=== PATIENT | female | born 1995 | race Hispanic/Latino ===

== ENCOUNTER 2022-10-02 18:53 | Emergency (ER) | payer OTHER, SELFPAY ==
[2022-10-02] VITALS (10 sets, daily range): BP systolic 118–133; BP diastolic 71–79; PULSE 91–105; RESP 16–25; TEMP 37; O2SAT 97–100; BMI 23.8
--- NOTE | 2022-10-02 19:53 | ED_ITS ---
HPI - Arrhythmia/Palpitations General Chief Complaint: Arrhythmia/Palpitations Stated Complaint: SOB Time Seen by Provider: 10/02/22 19:10 Source: patient Mode of arrival: Family Vehicle History of Present Illness HPI narrative: 27-year-old female nonsmoker with no chronic medical problems presents with a chief complaint of elevated heart rate for the last week or so which is making her anxious and giving her difficulty sleeping, she does report some shortness of breath when lying flat on occasion. She is been to an outside facility 3 times and has had extensive lab workups and even CT scan per her report, we are still waiting on records. She denies recent travel, change in medications, she does not smoke and denies any history of blood clot. She denies any fever, chills, nausea or vomiting. Her last menstrual cycle was last month and was a bit atypical but she states that she is had multiple negative test. She denies any dysuria, frequency or urgency. She is had no dark and tarry stools. She denies any medication or dietary change. Related Data Allergies Allergy/AdvReac Type Severity Reaction Status Date / Time No Known Drug Allergies Allergy Verified 10/02/22 18:59 Review of Systems Review of Systems Narrative: GENERAL: Denies chills, fatigue, malaise, fever, sweats. HEENT: Denies sinus pain, ear pain, sore throat, difficulty swallowing, dizziness. RESPIRATORY: Denies dyspnea, cough, wheezing, hemoptysis, sputum. CARDIOVASCULAR: See HPI GASTROINTESTINAL: Denies nausea, vomiting, abdominal pain, diarrhea, constipation, melena. : Denies dysuria, frequency, incontinence, hematuria, urinary retention. MUSCULOSKELETAL: denies weakness, joint pain, or bony pain SKIN: Denies rash, skin lesions, or other NEUROLOGIC: Denies weakness, headache, numbness, change in speech, confusion, seizures, incoordination. PSYCHIATRIC: No concerning psychosocial issues. 12 point review of systems is negative except for those stated above Patient History Social History Smoking Status: Never smoker Smoking Status: Never smoker alcohol intake frequency: holidays/special occasions only Substance Use Type: does not use Exam Narrative Exam Narrative: GENERAL: [27] year old patient appears stated age. Well-developed patient, in mild distress. HEAD: Atraumatic. Normocephalic. EYES: Pupils equal round and reactive. Extraocular motions intact. No scleral icterus. No injection or drainage. ENT: Nose without bleeding, purulent drainage. Throat without erythema, tonsillar hypertrophy or exudate. Airway patent. NECK: Trachea midline. Non tender CARDIOVASCULAR: Regular rate and rhythm without murmurs, gallops, or rubs. RESPIRATORY: Clear to auscultation. Breath sounds equal bilaterally. No wheezes, rales, or rhonchi. GASTROINTESTINAL: Abdomen soft, non-tender, nondistended. EXTREMITIES: No edema or joint tenderness. BACK: Nontender without deformity or crepitance. No flank tenderness. NEURO: AOx3. SKIN: No rash or erythema of visible areas Initial Vital Signs Initial Vital Signs: Vital Signs Temperature 98.6 F 10/02/22 18:59 Pulse Rate 105 H 10/02/22 18:59 Respiratory Rate 22 10/02/22 18:59 Blood Pressure 123/79 10/02/22 18:59 Pulse Oximetry 97 10/02/22 18:59 Oxygen Delivery Method Room Air 10/02/22 18:59 Course Orders Ordered: ED Orders 10/02/22 20:00 Complete Blood Count AUTO DIFF Stat Comprehensive Metabolic Panel Stat D Dimer Stat Magnesium Stat TSH w/ Reflex to FT4 Stat Troponin & CK Cardiac Panel Stat Discontinued Medications Sodium Chloride (Normal Saline 0.9%) 1,000 mls @ 1,000 mls/hr IV BOLUS ONE Stop: 10/02/22 20:09 Last Infusion: 10/02/22 21:09 Dose: 0 mls/hr Documented By: Admin: 10/02/22 20:05 Dose: 1,000 mls/hr Documented By: SB Vital Signs Vital signs: Vital Signs - 8 hr 10/02/22 21:00 10/02/22 21:00 10/02/22 21:30 Pulse Rate 92 H Respiratory Rate 20 Blood Pressure 121/74 125/71 Pulse Oximetry 99 Oxygen Delivery Method Room Air 10/02/22 21:30 10/02/22 22:00 10/02/22 22:00 Pulse Rate 94 H 94 H Respiratory Rate 16 21 Blood Pressure 119/73 Pulse Oximetry 98 97 Oxygen Delivery Method 10/02/22 22:30 10/02/22 22:30 10/02/22 23:00 Pulse Rate 96 H Respiratory Rate 23 Blood Pressure 118/77 123/75 Pulse Oximetry 97 Oxygen Delivery Method 10/02/22 23:00 10/02/22 23:30 10/02/22 23:30 Pulse Rate 94 H 92 H Respiratory Rate 17 20 Blood Pressure 124/72 Pulse Oximetry 97 97 Oxygen Delivery Method MDM - Arrhythmia/Palpitations Lab Data 10/02/22 20:00 10/02/22 20:00 Labs: Lab Results 10/02/22 10/02/22 10/02/22 Range/Units 19:23 20:00 20:00 WBC 9.0 (4.5-11.0) X10^3/uL RBC 5.23 H (4.0-5.2) X10^6/uL Hgb 14.5 (12.0-16.0) g/dL Hct 42.5 (36-46) % MCV 81.2 (80-100) fL MCH 27.7 (26-34) PG MCHC 34.1 (30-36) % RDW 13.6 (11.6-14.8) % Plt Count 264 (150-400) X10^3/uL Neut % (Auto) 72.3 (50-75) % Lymph % (Auto) 20.1 L (25-40) % [place] % (Auto) 6.3 (3-14) % Eos % (Auto) 0.5 L (2-4) % Baso % (Auto) 0.8 (0-2) % Neut # (Auto) 6500 (4357-5361) /uL Lymph # (Auto) 1800 (3030-6931) /uL [place] # (Auto) 600 (0-900) /uL Eos # (Auto) 0 (0-450) /uL Baso # (Auto) 100 (0-100) /uL D-Dimer (<500) ng/ml Sodium (137-145) mmol/L Potassium (3.4-5.1) mmol/L Chloride (98-107) mmol/L Carbon Dioxide (22-32) mmol/L BUN (7-17) mg/dL Creatinine (0.52-1.04) mg/dL Estimated GFR (>60) mL/min BUN/Creatinine Ratio (6-22) Glucose (70-100) mg/dL Calcium (8.4-10.2) mg/dL Magnesium (1.6-2.3) mg/dL Total Bilirubin (0.2-1.3) mg/dL AST (14-36) IU/L ALT (<35) IU/L Alkaline Phosphatase (38-126) U/L Total Creatine Kinase (30-135) U/L CK-MB (CK-2) CK-MB (CK-2) Rel Index Troponin I (0.01-0.034) ng/mL Total Protein (6.3-8.2) g/dL Albumin (3.5-5.0) g/dL Globulin (1.7-4.1) g/dL Albumin/Globulin Ratio (1.0-2.8) TSH 1.57 (0.47-4.68) uIU/mL U Opiates 300ng/mL cut Negative (Negative) Ur Oxycodone Screen Negative (Negative) Urine Methadone Screen Negative (Negative) Ur Barbiturates Screen Negative (Negative) U Tricyclic Antidepress Negative (Negative) Ur Phencyclidine Scrn Negative (Negative) Ur Amphetamines Screen Negative (Negative) U Methamphetamines Scrn Negative (Negative) Ur MDMA Scrn (Ecstasy) Negative (Negative) U Benzodiazepines Scrn Positive H (Negative) Urine Cocaine Screen Negative (Negative) U Marijuana (THC) Screen Negative (Negative) 10/02/22 10/02/22 Range/Units 20:00 20:00 WBC (4.5-11.0) X10^3/uL RBC (4.0-5.2) X10^6/uL Hgb (12.0-16.0) g/dL Hct (36-46) % MCV (80-100) fL MCH (26-34) PG MCHC (30-36) % RDW (11.6-14.8) % Plt Count (150-400) X10^3/uL Neut % (Auto) (50-75) % Lymph % (Auto) (25-40) % [place] % (Auto) (3-14) % Eos % (Auto) (2-4) % Baso % (Auto) (0-2) % Neut # (Auto) (2324-5475) /uL Lymph # (Auto) (9617-7421) /uL [place] # (Auto) (0-900) /uL Eos # (Auto) (0-450) /uL Baso # (Auto) (0-100) /uL D-Dimer 816 H (<500) ng/ml Sodium 136 L (137-145) mmol/L Potassium 4.4 (3.4-5.1) mmol/L Chloride 101 (98-107) mmol/L Carbon Dioxide 25 (22-32) mmol/L BUN 12 (7-17) mg/dL Creatinine 0.67 (0.52-1.04) mg/dL Estimated GFR > 60 (>60) mL/min BUN/Creatinine Ratio 17.9 (6-22) Glucose 95 (70-100) mg/dL Calcium 9.6 (8.4-10.2) mg/dL Magnesium 2.0 (1.6-2.3) mg/dL Total Bilirubin 0.4 (0.2-1.3) mg/dL AST 27 (14-36) IU/L ALT 34 (<35) IU/L Alkaline Phosphatase 80 (38-126) U/L Total Creatine Kinase 73 (30-135) U/L CK-MB (CK-2) TNP CK-MB (CK-2) Rel Index TNP Troponin I < 0.012 (0.01-0.034) ng/mL Total Protein 8.8 H (6.3-8.2) g/dL Albumin 4.6 (3.5-5.0) g/dL Globulin 4.2 H (1.7-4.1) g/dL Albumin/Globulin Ratio 1.1 (1.0-2.8) TSH (0.47-4.68) uIU/mL U Opiates 300ng/mL cut (Negative) Ur Oxycodone Screen (Negative) Urine Methadone Screen (Negative) Ur Barbiturates Screen (Negative) U Tricyclic Antidepress (Negative) Ur Phencyclidine Scrn (Negative) Ur Amphetamines Screen (Negative) U Methamphetamines Scrn (Negative) Ur MDMA Scrn (Ecstasy) (Negative) U Benzodiazepines Scrn (Negative) Urine Cocaine Screen (Negative) U Marijuana (THC) Screen (Negative) Point of Care Testing Test Results Negative Urine Dip Bedside Urine Glucose Negative Bedside Urine Bilirubin - Negative Bedside Urine Ketone +++ 80 Urine Specific [place] 1.025 Bedside Urine Occult Blood - Negative Bedside Urine pH 5.5 Bedside Urine Protein - Negative Bedside Urine Urobilinogen - Negative Bedside Urine Nitrite - Negative Bedside Urine Leukocytes - Negative Esterase MDM Narrative Medical decision making narrative: CC: 27-year-old female with elevated heart rate Complicating co-morbidities: None known Data collected from: Patient Medical records reviewed: Prior notes reviewed in our EMR Differential considered, but not limited to: Pulmonary embolism, anemia, infectious process, electrolyte abnormality, thyroid abnormality versus other Exam documented above, pertinent findings include: Rate regular, lungs clear and nonlabored, abdomen soft and nontender Lab Test results independently reviewed as above. Pertinent findings: Independently reviewed EKG as above Imaging studies independently reviewed:2330 outside records finally came demonstrating CTA Chest for PE on 09/28 due to tachycardia and elevated Dimer without evidence of PE, will not repeat Scores Used: Wells, PERC Treatments: Fluids Re-evaluations: Patient largely asymptomatic over the duration of her visit with heart rate in the 80s and 90s. She denies any chest pain, feels well Discussion: Patient has been having episodes of low-grade tachycardia in the 90s and low 100s. She is had extensive workups with our department and [facility]. Labs have been unremarkable she had a CT angiogram performed a few days ago due to an elevated D-dimer. We decided it was unlikely to be benef icial to perform another CT angiogram today. There is no evidence of anemia, infection, electrolyte abnormality, TSH is normal. Patient is hemodynamically stable, blood pressure without abnormality, she is not hypoxemic. I encouraged her to pursue follow-up with Cardiology and gave contact information. Return precautions discussed and questions answered to her apparent satisfaction Disposition: see below, along with detailed discharge instructions that have been reviewed with patient as well as indications for ED re-evaluation and additional outpatient follow up Discharge Plan Departure Patient Disposition: Home Clinical Impression: Palpitations Instructions: DI for Palpitations Activity Restrictions/Additional Instructions: *You have been diagnosed with [occasional sinus tachycardia. As we discussed your history and physical exam are very reassuring, labs and EKG have no sign ificant findings. Your vital signs have been very stable and reassuring over the course of the visit. I was able to obtain records from your visits had [facility] which correlate with today's visit and at this time there is no obvious indication that further workup is needed in the emergency department.] *What to do: *Please continue to take your regular medications as directed. [ ] New medication prescriptions sent to your pharmacy: [ ] [ ] New medication written as a paper prescription [ x] No new medications given *Please follow up with your primary care provider in 2-3 days, call for an appointment. Let them know you were seen in the Emergency Department and that we ask that you be seen in follow up. We will electronically transmit a record of today's note if your PCP is in our system * as we discussed I have given you contact information for the local cardiology group. Please call their office on Monday, let them know that you were seen in the emergency department and we hope that they will see you in follow-up. *Please avoid caffeine, nicotine, alcohol and other stimulants which may making more likely to become tachycardic in the future. *If you do not have a primary care provider please contact the [facility] Resource line at [phone]. They will ask some questions about your medical history and help get you set up with a doctor in the community. *Return to Emergency Department if you should have any new, worsening or co ncerning symptoms, such as [fever greater than 101 F, shaking chills, worsening pain, persistent vomiting or other bothersome symptoms] Referrals: Donita Akins MD [Physician] - Stand Alone Forms: Patient Portal/API
[2022-10-02] MEDS: SODIUM CHLORIDE 0.9% 1,000 ML 1000 ML IV (20:05)
[2022-10-02 20:17] LABS: Add Manual Diff / Slide Review NO; Basophils Absolute Auto 100 /uL (0-100); Basophils Percent Auto 0.8 % (0-2); Eosinophils Absolute Auto 0 /uL (0-450); Eosinophils Percent Auto 0.5 % (2-4); Hematocrit 42.5 % (36-46); Hemoglobin 14.5 g/dL (12.0-16.0); Lymphocytes Absolute Auto 1800 /uL (1100-4500); Lymphocytes Percent Auto 20.1 % (25-40); Mean Corpuscular HGB Conc 34.1 % (30-36); Mean Corpuscular Hemoglobin 27.7 PG (26-34); Mean Corpuscular Volume 81.2 fL (80-100); Monocytes Absolute Auto 600 /uL (0-900); Monocytes Percent Auto 6.3 % (3-14); Neutrophils Absolute Auto 6500 /uL (1500-7000); Neutrophils Percent Auto 72.3 % (50-75); Platelet Count 264 X10^3/uL (150-400); Red Blood Cell Count 5.23 X10^6/uL (4.0-5.2); Red Cell Distribution Width 13.6 % (11.6-14.8)
[2022-10-02 20:25] LABS: D Dimer 816 ng/ml (<500)
--- NOTE | 2022-10-02 20:25 | PC.NURSE ---
the patient states the first episode of fast heart rate happened while sitting and watching tic tok. She stated that she was anxious about something that was going to happen later that day. The heart rate grew faster until she went to the ER. The second time the heart rate went fast she just finished eating fast food. She states that she has been eating a lot more fast food lately and peeing a lot more and more thirsty. Has a family history of Diabetes.
[2022-10-02 20:27] LABS: Alanine Aminotransferase 34 IU/L (<35); Albumin 4.6 g/dL (3.5-5.0); Albumin Globulin Ratio 1.1 (1.0-2.8); Alkaline Phosphatase 80 U/L (38-126); Aspartate Aminotransferase 27 IU/L (14-36); BUN Creatinine Ratio 17.9 (6-22); Bilirubin Total 0.4 mg/dL (0.2-1.3); Blood Urea Nitrogen 12 mg/dL (7-17); Calcium 9.6 mg/dL (8.4-10.2); Carbon Dioxide 25 mmol/L (22-32); Chloride 101 mmol/L (98-107); Creatine Kinase 73 U/L (30-135); Estimated Glomerular Filt Rate > 60 mL/min (>60); Globulin 4.2 g/dL (1.7-4.1); Glucose 95 mg/dL (70-100); HEMOLYSIS < 15 (0-50); Potassium 4.4 mmol/L (3.4-5.1); Sodium 136 mmol/L (137-145); Total Protein 8.8 g/dL (6.3-8.2)
[2022-10-02 20:38] LABS: Troponin I < 0.012 ng/mL (0.01-0.034)
[2022-10-02 21:09] LABS: TSH w/ Reflex to FT4 1.57 uIU/mL (0.47-4.68)
[2022-10-02 21:52] LABS: UR Morphine/Opiate cutoff 300 Negative (Negative); Ur Creatinine 20 (Normal); Ur Specific Gravity 1.025 (Normal); Urine Amphetamines Negative (Negative); Urine Barbiturates Negative (Negative); Urine Benzodiazepines Positive (Negative); Urine Cocaine Negative (Negative); Urine MDMA Negative (Negative); Urine Methadone Negative (Negative); Urine Methamphetamines Negative (Negative); Urine Oxycodone Negative (Negative); Urine Phencyclidine Negative (Negative); Urine Tetrahydrocannabinol Negative (Negative); Urine Tricyclic Antidepressant Negative (Negative); Urine pH 5 (Normal)
== END 2022-10-03 00:09 | disposition home or self-care (01) ==
PROVIDERS: Emergency Provider Emergency Medicine
DX: R00.2 Palpitations (principal); R06.02 Shortness of breath
CPT/HCPCS: 36415; 80053; 80305; 81003; 81025; 82550; 83735; 84443; 84484; 85025; 85379; 93005; 99284

== ENCOUNTER 2022-10-03 20:14 | Observation (INO) | payer OTHER, SELFPAY ==
[2022-10-03 20:26] VITALS: BP 122/87; PULSE 115; RESP 20; TEMP 37; O2SAT 93; BMI 23.8
--- NOTE | 2022-10-03 20:31 | DI.CT.S_ITS ---
PROCEDURE: CT ANGIO CHEST PE PROTOCOL INDICATIONS: chest pain, tachycardia TECHNIQUE: After the administration of intravenous contrast, 2 mm thick sections acquired from the pulmonary apices to the posterior costophrenic angles. 3-dimensional maximum intensity projection (MIP) coronal and sagittal reformats were then acquired through the thorax. For radiation dose reduction, the following was used: automated exposure control, adjustment of mA and/or kV according to patient size. COMPARISON: None. FINDINGS: Image quality: Excellent. Pulmonary arteries: Pulmonary arteries are normal in size, and demonstrate no intraluminal filling defects to suggest central pulmonary embolism. Lower Neck: No lymphadenopathy by size criteria. Thyroid: Visualized thyroid demonstrates no discrete nodules. Axillae: No lymphadenopathy by size criteria. Chest Wall: Unremarkable. Bones: Visualized osseous structures demonstrate no suspicious lesions. Lungs and Airways: No acute consolidation. No suspicious pulmonary nodules. There is mild dependent atelectasis. The trachea and central airways are patent. Pleura: No pneumothorax or pleural effusions. Heart: Heart size is normal. No pericardial effusion. Thoracic Vessels: The thoracic aorta is normal in size. Mediastinum and Dolly: No lymphadenopathy by size criteria. Esophagus: No wall thickening. No hiatal hernia. Abdomen: Visualized upper abdominal solid organs appear normal in the early arterial phase of enhancement. IMPRESSION: 1. No evidence of pulmonary embolism. 2. No acute airspace consolidation. Dictated by: Chuckie Bonds M.D. on 10/03/2022 at 21:33 Approved by: Chuckie Bonds M.D. on 10/03/2022 at 21:35
[2022-10-03 20:57] LABS: Add Manual Diff / Slide Review NO; Basophils Absolute Auto 100 /uL (0-100); Basophils Percent Auto 0.7 % (0-2); Eosinophils Absolute Auto 100 /uL (0-450); Eosinophils Percent Auto 0.8 % (2-4); Hematocrit 40.5 % (36-46); Hemoglobin 13.7 g/dL (12.0-16.0); Lymphocytes Absolute Auto 1600 /uL (1100-4500); Lymphocytes Percent Auto 16.7 % (25-40); Mean Corpuscular HGB Conc 33.8 % (30-36); Mean Corpuscular Hemoglobin 27.4 PG (26-34); Mean Corpuscular Volume 81.1 fL (80-100); Monocytes Absolute Auto 700 /uL (0-900); Monocytes Percent Auto 7.1 % (3-14); Neutrophils Absolute Auto 7200 /uL (1500-7000); Neutrophils Percent Auto 74.7 % (50-75); Platelet Count 267 X10^3/uL (150-400); Red Blood Cell Count 4.99 X10^6/uL (4.0-5.2); Red Cell Distribution Width 13.4 % (11.6-14.8); White Blood Cell Count 9.7 X10^3/uL (4.5-11.0)
[2022-10-03 21:09] LABS: COVID19 -Nasal RAPID Negative (Negative)
[2022-10-03 21:10] LABS: INR 1.1 (0.9-1.3); Prothrombin Time 12.9 SECONDS (10.1-12.7)
[2022-10-03 21:11] LABS: D Dimer 821 ng/ml (<500)
[2022-10-03 21:12] LABS: PTT Partial Thromboplastin Tim 34 SECONDS (26-36)
[2022-10-03 21:30] LABS: NT-proBNP (BNP-Adult 18+) < 11 pg/mL (<125)
[2022-10-03 21:59] LABS: Alanine Aminotransferase 36 IU/L (<35); Albumin 4.5 g/dL (3.5-5.0); Albumin Globulin Ratio 1.2 (1.0-2.8); Alkaline Phosphatase 71 U/L (38-126); Aspartate Aminotransferase 29 IU/L (14-36); BUN Creatinine Ratio 17.2 (6-22); Bilirubin Total 0.5 mg/dL (0.2-1.3); Blood Urea Nitrogen 10 mg/dL (7-17); Calcium 9.3 mg/dL (8.4-10.2); Carbon Dioxide 21 mmol/L (22-32); Chloride 103 mmol/L (98-107); Creatine Kinase 45 U/L (30-135); Estimated Glomerular Filt Rate > 60 mL/min (>60); Globulin 3.8 g/dL (1.7-4.1); Glucose 122 mg/dL (70-100); HEMOLYSIS < 15 (0-50); Lipase 85 U/L (23-300); Potassium 3.6 mmol/L (3.4-5.1); Sodium 137 mmol/L (137-145); Total Protein 8.3 g/dL (6.3-8.2)
[2022-10-03 22:11] LABS: Troponin I < 0.012 ng/mL (0.01-0.034)
[2022-10-03 22:16] LABS: Procalcitonin < 0.03 ng/mL (<0.5)
[2022-10-03] MEDS: SODIUM CHLORIDE 0.9% 1,000 ML 150 ML IV (22:22)
--- NOTE | 2022-10-03 22:28 | ED.CHESTPAIN ---
HPI - Chest Pain General Chief Complaint: Chest Pain Stated Complaint: SOB, CHEST PAIN Time Seen by Provider: 10/03/22 20:28 Source: patient Mode of arrival: Family Vehicle Limitations: no limitations History of Present Illness HPI narrative: 27-year-old female nonsmoker with no chronic medical problems presents with a chief complaint of elevated heart rate and episodes of chest pain over the past week or so. She was seen and evaluated by myself yesterday under similar circumstances and this is now her 5th visit over the past week for similar. She returned today because she had another episode of rapid heart rate up into the 120s or 130s and some central chest pressure and heaviness that made her feel quite anxious and uncomfortable. She is had episodes of shortness of breath and even the occasional episode of mild abdominal discomfort along with this. As noted in prior charts she would never been having trouble until a week or 2 ago and denies any new medications, travel or dietary change. She is had extensive lab workups, EKGs and even a chest CT at an outside facility last week to rule out pulmonary embolism. She had initially been given some benzodiazepines and beta-blockers to help and was encouraged to follow-up. She denies recent travel, trauma or injury. She denies fever or chills. She denies vomiting, diarrhea or dysuria. She is not dizzy nor weak or lightheaded Related Data Home Medications Medication Instructions Recorded Confirmed alprazolam 0.25 mg tablet 0.25 mg PO BID 10/04/22 10/04/22 metoprolol tartrate 25 mg tablet 25 mg PO DAILY 10/04/22 10/04/22 Allergies Allergy/AdvReac Type Severity Reaction Status Date / Time No Known Drug Allergies Allergy Verified 10/02/22 18:59 Review of Systems Review of Systems Narrative: GENERAL: See HPI HEENT: Denies sinus pain, ear pain, sore throat, difficulty swallowing, dizziness. RESPIRATORY: See HPI CARDIOVASCULAR: See HPI GASTROINTESTINAL: Denies nausea, vomiting, abdominal pain, diarrhea, constipation, melena. : Denies dysuria, frequency, incontinence, hematuria, urinary retention. MUSCULOSKELETAL: denies weakness, joint pain, or bony pain SKIN: Denies rash, skin lesions, or other NEUROLOGIC: Denies weakness, headache, numbness, change in speech, confusion, seizures, incoordination. PSYCHIATRIC: No concerning psychosocial issues. 12 point review of systems is negative except for those stated above Patient History Social History household members: spouse Smoking Status: Never smoker alcohol intake: current Smoking Status: Never smoker alcohol intake frequency: holidays/special occasions only Substance Use Type: does not use Exam Narrative Exam Narrative: GENERAL: [27] year old patient appears stated age. Well-developed patient, in mild distress. Anxious HEAD: Atraumatic. Normocephalic. EYES: Pupils equal round and reactive. Extraocular motions intact. No scleral icterus. No injection or drainage. ENT: Nose without bleeding, purulent drainage. Throat without erythema, tonsillar hypertrophy or exudate. Airway patent. NECK: Trachea midline. Non tender CARDIOVASCULAR: Tachycardic but regular rhythm without murmurs, gallops, or rubs. RESPIRATORY: Clear to auscultation. Breath sounds equal bilaterally. No wheezes, rales, or rhonchi. GASTROINTESTINAL: Abdomen soft, non-tender, nondistended. EXTREMITIES: No edema or joint tenderness. BACK: Nontender without deformity or crepitance. No flank tenderness. NEURO: AOx3. SKIN: No rash or erythema of visible areas Initial Vital Signs Initial Vital Signs: Vital Signs Temperature 98.6 F 10/03/22 20:26 Pulse Rate 115 H 10/03/22 20:26 Respiratory Rate 20 10/03/22 20:26 Blood Pressure 122/87 10/03/22 20:26 Pulse Oximetry 93 10/03/22 20:26 Oxygen Delivery Method Room Air 10/03/22 20:26 Course Orders Ordered: Acetaminophen (Acetaminophen 325 Mg Tablet) 650 mg PO Q6H PRN PRN Reason: Fever/Mild Pain (1-3) Enoxaparin Sodium (Enoxaparin 40 Mg/0.4 Ml Syringe) 40 mg SUBCUT DAILY XIOMARA Naloxone HCl (Naloxone 0.4 Mg/Ml Vial) 0.2 mg IV Q2MIN PRN PRN Reason: Opiate Reversal Ondansetron HCl (Ondansetron 4 Mg/2 Ml Inj) 4 mg IV Q8HR PRN PRN Reason: Nausea And Vomiting Discontinued Medications Sodium Chloride (Normal Saline 0.9%) 1,000 mls @ 150 mls/hr IV CONT XIOMARA Last Infusion: 10/04/22 01:07 Dose: 0 mls/hr Documented By: Admin: 10/03/22 22:22 Dose: 150 mls/hr Documented By: HORTENSIA Influenza Virus Vaccine (Influenza Vaccine Qiv 0.5 Ml Syringe) 0.5 ml IM .ONCE ONE Stop: 10/04/22 00:44 Consultations Consultation #1: Discussed with on-call Cardiology, Dr. Calle. After discussion of clinical course and multiple recent visits he recommends patient be admitted on telemetry with echocardiogram Consultation #2: Discussed with hospitalist, Dr. Lyon, he is happy to accept on his service Vital Signs Vital signs: Vital Signs - 8 hr 10/03/22 20:26 Temperature 98.6 F Pulse Rate 115 H Respiratory Rate 20 Blood Pressure 122/87 Pulse Oximetry 93 Oxygen Delivery Method Room Air MDM - Chest Pain Lab Data 10/03/22 20:35 10/03/22 20:35 Labs: Lab Results 10/03/22 10/03/22 10/03/22 Range/Units 20:35 20:35 20:35 WBC 9.7 (4.5-11.0) X10^3/uL RBC 4.99 (4.0-5.2) X10^6/uL Hgb 13.7 (12.0-16.0) g/dL Hct 40.5 (36-46) % MCV 81.1 (80-100) fL MCH 27.4 (26-34) PG MCHC 33.8 (30-36) % RDW 13.4 (11.6-14.8) % Plt Count 267 (150-400) X10^3/uL Neut % (Auto) 74.7 (50-75) % Lymph % (Auto) 16.7 L (25-40) % [place] % (Auto) 7.1 (3-14) % Eos % (Auto) 0.8 L (2-4) % Baso % (Auto) 0.7 (0-2) % Neut # (Auto) 7200 H (0214-2486) /uL Lymph # (Auto) 1600 (1768-5572) /uL [place] # (Auto) 700 (0-900) /uL Eos # (Auto) 100 (0-450) /uL Baso # (Auto) 100 (0-100) /uL PT 12.9 H (10.1-12.7) SECONDS INR 1.1 (0.9-1.3) APTT 34 (26-36) SECONDS D-Dimer 821 H (<500) ng/ml Sodium 137 (137-145) mmol/L Potassium 3.6 (3.4-5.1) mmol/L Chloride 103 (98-107) mmol/L Carbon Dioxide 21 L (22-32) mmol/L BUN 10 (7-17) mg/dL Creatinine 0.58 (0.52-1.04) mg/dL Estimated GFR > 60 (>60) mL/min BUN/Creatinine Ratio 17.2 (6-22) Glucose 122 H (70-100) mg/dL Calcium 9.3 (8.4-10.2) mg/dL Total Bilirubin 0.5 (0.2-1.3) mg/dL AST 29 (14-36) IU/L ALT 36 H (<35) IU/L Alkaline Phosphatase 71 (38-126) U/L Total Creatine Kinase 45 (30-135) U/L CK-MB (CK-2) TNP CK-MB (CK-2) Rel Index TNP Troponin I < 0.012 (0.01-0.034) ng/mL NT-Pro-B Natriuret Pep (<125) pg/mL Total Protein 8.3 H (6.3-8.2) g/dL Albumin 4.5 (3.5-5.0) g/dL Globulin 3.8 (1.7-4.1) g/dL Albumin/Globulin Ratio 1.2 (1.0-2.8) Lipase 85 (23-300) U/L Procalcitonin < 0.03 (<0.5) ng/mL SARS-CoV-2 (PCR) (Negative) 10/03/22 10/03/22 Range/Units 20:35 20:48 WBC (4.5-11.0) X10^3/uL RBC (4.0-5.2) X10^6/uL Hgb (12.0-16.0) g/dL Hct (36-46) % MCV (80-100) fL MCH (26-34) PG MCHC (30-36) % RDW (11.6-14.8) % Plt Count (150-400) X10^3/uL Neut % (Auto) (50-75) % Lymph % (Auto) (25-40) % [place] % (Auto) (3-14) % Eos % (Auto) (2-4) % Baso % (Auto) (0-2) % Neut # (Auto) (7275-8528) /uL Lymph # (Auto) (6728-6473) /uL [place] # (Auto) (0-900) /uL Eos # (Auto) (0-450) /uL Baso # (Auto) (0-100) /uL PT (10.1-12.7) SECONDS INR (0.9-1.3) APTT (26-36) SECONDS D-Dimer (<500) ng/ml Sodium (137-145) mmol/L Potassium (3.4-5.1) mmol/L Chloride (98-107) mmol/L Carbon Dioxide (22-32) mmol/L BUN (7-17) mg/dL Creatinine (0.52-1.04) mg/dL Estimated GFR (>60) mL/min BUN/Creatinine Ratio (6-22) Glucose (70-100) mg/dL Calcium (8.4-10.2) mg/dL Total Bilirubin (0.2-1.3) mg/dL AST (14-36) IU/L ALT (<35) IU/L Alkaline Phosphatase (38-126) U/L Total Creatine Kinase (30-135) U/L CK-MB (CK-2) CK-MB (CK-2) Rel Index Troponin I (0.01-0.034) ng/mL NT-Pro-B Natriuret Pep < 11 (<125) pg/mL Total Protein (6.3-8.2) g/dL Albumin (3.5-5.0) g/dL Globulin (1.7-4.1) g/dL Albumin/Globulin Ratio (1.0-2.8) Lipase (23-300) U/L Procalcitonin (<0.5) ng/mL SARS-CoV-2 (PCR) Negative (Negative) Point of Care Testing Test Results Negative Discharge Plan Departure Patient Disposition: Admitted As Inpatient Clinical Impression: Chest pain, Tachycardia Admit Date/Time: 10/03/22 23:25 Admit Provider: Miles Lyon
[2022-10-03 23:43] VITALS: BMI 23.8
[2022-10-04] VITALS (7 sets, daily range): BP systolic 95–151; BP diastolic 64–79; PULSE 85–98; RESP 16–20; TEMP 36–36.7; O2SAT 97–100
--- NOTE | 2022-10-04 00:24 | PC.NURSE ---
See ER paper chart to view VS's while on cardiac/vascular sonographer in ED prior to admission.
--- NOTE | 2022-10-04 00:43 | DI.ECHO.S_ITS ---
[place] [facility]---------+ [facility] +---------+ : : [address] : [address] : : : : [id number] : : : : Phone: [phone]+ Echocardiogram Report + + :Name: GERMÁN ORELLANA Study Date: 10/04/2022 Height: 62 in : :[facility] ReadingLocation: Weight: 130 lb : : Gender: Female BSA: 1.6 m2 : :: 1995 Age: 27 yrs BP: 115/69 mmHg: :Reason For Study: TACHYCARDIA : :Ordering Physician: JONATHAN, : :YVROSE Performed By: Jodee Conway : :Referring: YVROSE CASTILLO : + + Interpretation Summary The ejection fraction is estimated to be 55-60%. Diastolic parameters suggest probable normal left ventricular diastolic function and normal filling pressures. The right ventricle is grossly normal size. The right ventricular systolic function is normal. No significant valvular abnormalities. Unable to estimate PASP. Procedure: A two-dimensional transthoracic echocardiogram with color flow and Doppler was performed. The study quality was technically adequate. There is no prior echocardiogram noted for this patient. The patient was in sinus rhythm with heart rates between 78-95 bpm during the exam. Left Ventricle: The left ventricle is normal in size and wall thickness. The ejection fraction is estimated to be 55-60%. Diastolic parameters suggest probable normal left ventricular diastolic function and normal filling pressures. Right Ventricle: The right ventricle is grossly normal size. The right ventricular systolic function is normal. Atria: The left atrial size is normal. Right atrial size is normal. There is no Doppler evidence for an interatrial shunt. Mitral Valve: The mitral valve is normal in structure and function. There is no mitral regurgitation noted. Aortic Valve: The aortic valve is trileaflet. The aortic valve opens well. There is no aortic valve stenosis. No aortic regurgitation is present. Tricuspid Valve: The tricuspid valve is normal in structure and function. No tricuspid regurgitation. Pulmonary artery pressures cannot be estimated because of the lack of a measurable TR jet velocity. Pulmonic Valve: The pulmonic valve leaflets are thin and pliable; valve motion is normal. There is mild pulmonic regurgitation. Great Vessels: The aortic root is normal size. The dimensions of the ascending aorta are normal. The IVC is of normal diameter and collapses greater than 50% with a sniff. This suggests a low right atrial pressure of 3 mm Hg. Pericardium/ Pleura There is no pericardial effusion. There is no pleural effusion. MMode/2D Measurements & Calculations LVIDd: 4.5 cm LVOT diam: 2.0 cm LVIDs: 3.2 cm Ao root diam: 2.9 cm FS: 29.0 % asc Aorta Diam: 2.6 cm EPSS: 0.44 cm Ao Arch Diam (Prox Trans): 2.1 cm IVSd: 0.68 cm LVPWd: 0.65 cm LV jordan. diameter/BSA (cm/m^2): 2.8 LV sys. diameter/BSA (cm/m^2): 2.0 LA A2 area: 9.9 cm2 RA long axis: 3.6 cm LA A4 area: 10.5 cm2 RA area: 9.2 cm2 LA length (vol): 4.0 cm RA vol: 19.8 ml LA vol: 21.8 ml RA : 12.4 ml/m2 LA vol index: 13.7 ml/m2 IVC diam: 1.0 cm TAPSE: 1.8 cm Doppler Measurements & Calculations Ao V2 max: 117.1 cm/sec LVOT Max Fredy: 79.9 cm/sec Ao V2 mean: 81.7 cm/sec LV V1 max P.6 mmHg Ao max P.5 mmHg LV V1 VTI: 14.7 cm Ao mean P.9 mmHg RAMBO(I,D): 2.2 cm2 Ao V2 VTI: 20.3 cm ARMBO(V,D): 2.1 cm2 sev ratio: 0.73 RAMBO indexed to BSA (cm^2/m^2): 1.4 MV E max fredy: 76.6 cm/sec PA V2 max: 82.0 cm/sec MV A max fredy: 68.4 cm/sec PA V2 mean: 63.6 cm/sec MV E/A: 1.1 PA mean P.7 mmHg Med Peak E' Fredy: 8.6 cm/sec PA pr(Accel): 34.5 mmHg E/E' med: 8.9 Lat Peak E' Fredy: 14.4 cm/sec E/E' lat: 5.3 E/e' average: 7.1 MV dec time: 0.15 sec SV(LVOT): 45.0 ml Reading Physician:09:34 AM
--- NOTE | 2022-10-04 01:23 | P.HP_ITS ---
History of Present Illness History of Present Illness Date Patient Seen: 10/04/22 Time Patient Seen: 00:15 Chief complaint: SOB, CHEST PAIN Narrative: Ms. Braga is a 27W with no significant past medical history who presents with symptomatic palpitations. She has noted palpitations and tachycardia that have been occurring for about a week. She noted they started when she was at rest on her phone. She has not been particularly anxious. She has had slight chest discomfort, and possibly slight shortness of breath. She has no sick symptoms, no fevers, chills, cough, nausea, vomiting, diarrhea, dysuria. She does not smoke, drinks occasionally, and has no other substance use. She has no family history of cardiac issues, aside from a sibling with heart murmur. She takes no medications and take no other supplements or herbal ingestions She has presented multiple times to the ED and has been discharged with benzos and beta-lucius. In the ED workup was done, vitals notable for afebrile, heart rate 100s, respiratory rate 20s, blood pressure 120s/70s, sats 97% on room air. Labs reviewed by me and notable for WBC 9.0, hgb 14.5, plts 264. Na 136, k 4.4, creatinine 0.67. TSH 1.57. D-dimer 816. Trop negative. EKG showed sinus tachycardia. CTA shows no PE. She was ordered fluids and admitted for futher management. [facility] Social History household members: spouse Smoking Status: Never smoker alcohol intake: current Meds Home Medications and Allergies Home Medications Medication Instructions Recorded Confirmed Type alprazolam 0.25 mg tablet 0.25 mg PO BID 10/04/22 10/04/22 History metoprolol tartrate 25 mg tablet 25 mg PO DAILY 10/04/22 10/04/22 History Allergies Allergy/AdvReac Type Severity Reaction Status Date / Time No Known Drug Allergies Allergy Verified 10/02/22 18:59 Review of Systems Review of Systems Narrative: 14 systems reviewed and negative aside from what is noted in HPI Exam Vital Signs (past 8 hours): - 10/03/22 20:26 10/04/22 00:43 10/04/22 00:43 Temperature 98.6 F 98.1 F Pulse Rate 115 H 98 H Respiratory Rate 20 18 Blood Pressure 122/87 151/79 H Pulse Oximetry 93 100 100 Oxygen Delivery Method Room Air Room Air Oxygen Delivery Method Room Air Narrative Exam Narrative: GEN: no acute distress HEENT: moist mucous membranes, PERRL NECK: trachea midline, no JVD PULM: clear bilaterally, no wheezes, rhonchi, rales CV: tachycardic, no murmurs ABD: soft, nontender, nondistended, no organomegaly EXT: warm and well perfused, no edema NEURO; awake, alert, oriented, no focal deficits Objective Labs 10/03/22 20:35 10/03/22 20:35 Labs: Laboratory Results - last 24 hr 10/03/22 10/03/22 10/03/22 20:35 20:35 20:35 WBC 9.7 RBC 4.99 Hgb 13.7 Hct 40.5 MCV 81.1 MCH 27.4 MCHC 33.8 RDW 13.4 Plt Count 267 Neut % (Auto) 74.7 Lymph % (Auto) 16.7 L [place] % (Auto) 7.1 Eos % (Auto) 0.8 L Baso % (Auto) 0.7 Neut # (Auto) 7200 H Lymph # (Auto) 1600 [place] # (Auto) 700 Eos # (Auto) 100 Baso # (Auto) 100 PT 12.9 H INR 1.1 APTT 34 D-Dimer 821 H Sodium 137 Potassium 3.6 Chloride 103 Carbon Dioxide 21 L BUN 10 Creatinine 0.58 Estimated GFR > 60 BUN/Creatinine Ratio 17.2 Glucose 122 H Calcium 9.3 Total Bilirubin 0.5 AST 29 ALT 36 H Alkaline Phosphatase 71 Total Creatine Kinase 45 CK-MB (CK-2) TNP CK-MB (CK-2) Rel Index TNP Troponin I < 0.012 NT-Pro-B Natriuret Pep Total Protein 8.3 H Albumin 4.5 Globulin 3.8 Albumin/Globulin Ratio 1.2 Lipase 85 Procalcitonin < 0.03 SARS-CoV-2 (PCR) 10/03/22 10/03/22 20:35 20:48 WBC RBC Hgb Hct MCV MCH MCHC RDW Plt Count Neut % (Auto) Lymph % (Auto) [place] % (Auto) Eos % (Auto) Baso % (Auto) Neut # (Auto) Lymph # (Auto) [place] # (Auto) Eos # (Auto) Baso # (Auto) PT INR APTT D-Dimer Sodium Potassium Chloride Carbon Dioxide BUN Creatinine Estimated GFR BUN/Creatinine Ratio Glucose Calcium Total Bilirubin AST ALT Alkaline Phosphatase Total Creatine Kinase CK-MB (CK-2) CK-MB (CK-2) Rel Index Troponin I NT-Pro-B Natriuret Pep < 11 Total Protein Albumin Globulin Albumin/Globulin Ratio Lipase Procalcitonin SARS-CoV-2 (PCR) Negative Assessment & Plan Assessment & Plan narrative: 1. Symptomatic tachycardia -workup to this point shows no definitive etiology -normal temp, normal white count, no infectious symptoms -CTA negative for PE -EKG with no acute ischemia, troponin normal -will obs for further evaluation with ECHO -other etiology to consider - arrhythmia will keep on tele and recommend referral to cardiology upon discharge and likely will need heavy mobile equipment repairer -other possibilities include pheochromcytoma, may benefit from metanephrines -other etiologies are POTS and inappropriate sinus tachycardia as diagnoses once other etiologies are excluded -hold off on beta-lucius for now I have discussed plan and obtained history from the patient. I have discussed plan of care with ED physician and bedside nurse. I have reviewed labs, imaging. CODE: Full Proxy: Alvin Steve, spouse Quality VTE Deep Vein Thrombosis/Pulmonary Embolism Present on Admission: No
[2022-10-04] MEDS: METOPROLOL ER 25 MG TABLET PO (08:26)
[2022-10-04] MEDS: ALPRAZolam 0.25 MG TABLET PO (08:26)
[2022-10-04] MEDS: ENOXAPARIN 40 MG/0.4 ML SYRINGE SUBCUT (08:27)
[2022-10-04] MEDS: SODIUM CHLORIDE 0.9% FLUSH 10 ML IV (08:28)
--- NOTE | 2022-10-04 12:32 | PC.NURSE ---
IV and telemetry removed. Discussed signs of stroke, atypical chest pain, follow up care, and continuing medications. Answered questions regarding medication times and exercise. No further questions. pt wheeled to care via w/c by RN with .
--- NOTE | 2022-10-04 16:30 | P.DS_ITS ---
History of Present Illness History of Present Illness Date Patient Seen: 10/04/22 Time Patient Seen: 00:15 Chief complaint: SOB, CHEST PAIN Narrative: Ms. Braga is a 27W with no significant past medical history who presents with symptomatic palpitations. She has noted palpitations and tachycardia that have been occurring for about a week. She noted they started when she was at rest on her phone. She has not been particularly anxious. She has had slight chest discomfort, and possibly slight shortness of breath. She has no sick symptoms, no fevers, chills, cough, nausea, vomiting, diarrhea, dysuria. She does not smoke, drinks occasionally, and has no other substance use. She has no family history of cardiac issues, aside from a sibling with heart murmur. She takes no medications and take no other supplements or herbal ingestions She has presented multiple times to the ED and has been discharged with benzos and beta-lucius. In the ED workup was done, vitals notable for afebrile, heart rate 100s, respiratory rate 20s, blood pressure 120s/70s, sats 97% on room air. Labs reviewed by me and notable for WBC 9.0, hgb 14.5, plts 264. Na 136, k 4.4, creatinine 0.67. TSH 1.57. D-dimer 816. Trop negative. EKG showed sinus tachycardia. CTA shows no PE. She was ordered fluids and admitted for futher management. Discharge Providers Provider Date of admission: 10/03/22 23:25 Discharge Date: 10/04/22 Primary care physician: Doctor Kady MD Discharge provider: Kev Moses DO Summary Hospital Course Discharge Diagnosis: 1. Symptomatic tachycardia -workup to this point shows no definitive etiology -normal temp, normal white count, no infectious symptoms -CTA negative for PE -EKG with sinus tachycardia, no acute ischemia, troponin normal -echo normal EF 55-60%, no valvular abnormalitis -spoke with Dr. Julio cardiology who recommended outpatient Zio patch -other possibilities include pheochromcytoma, may benefit from metanephrines -metoprolol and xanax helped while in the hospital, recommend continuing on discharge Hospital Course: Admitted for palpitations and concern for cardiac etiology. However telemetry, EKG, and echo all normal. Electrolytes WNL. Cardiology recommended outpatient Zio patch. Given metoprolol and xanax while admitted which helped her symptoms. Recommended patient continue this at home. Time Spent with Patient Time spent: Greater than 30 minutes Exam Vital Signs (past 8 hours): - 10/04/22 11:00 10/04/22 12:00 Temperature 97.8 F Pulse Rate 86 Respiratory Rate 16 Blood Pressure 95/64 Pulse Oximetry 98 98 Oxygen Delivery Method Room Air Oxygen Flow Rate 0 0 Oxygen Delivery Method Room Air Oxygen Flow Rate 0 Narrative Exam Narrative: GEN: no acute distress HEENT: moist mucous membranes, PERRL NECK: trachea midline, no JVD PULM: clear bilaterally, no wheezes, rhonchi, rales CV: regular rate and rhythm, no murmurs ABD: soft, nontender, nondistended, no organomegaly EXT: warm and well perfused, no edema NEURO; awake, alert, oriented, no focal deficits Objective Labs 10/03/22 20:35 10/03/22 20:35 Labs: Laboratory Results - last 24 hr 10/03/22 10/03/22 10/03/22 20:35 20:35 20:35 WBC 9.7 RBC 4.99 Hgb 13.7 Hct 40.5 MCV 81.1 MCH 27.4 MCHC 33.8 RDW 13.4 Plt Count 267 Neut % (Auto) 74.7 Lymph % (Auto) 16.7 L [place] % (Auto) 7.1 Eos % (Auto) 0.8 L Baso % (Auto) 0.7 Neut # (Auto) 7200 H Lymph # (Auto) 1600 [place] # (Auto) 700 Eos # (Auto) 100 Baso # (Auto) 100 PT 12.9 H INR 1.1 APTT 34 D-Dimer 821 H Sodium 137 Potassium 3.6 Chloride 103 Carbon Dioxide 21 L BUN 10 Creatinine 0.58 Estimated GFR > 60 BUN/Creatinine Ratio 17.2 Glucose 122 H Calcium 9.3 Total Bilirubin 0.5 AST 29 ALT 36 H Alkaline Phosphatase 71 Total Creatine Kinase 45 CK-MB (CK-2) TNP CK-MB (CK-2) Rel Index TNP Troponin I < 0.012 NT-Pro-B Natriuret Pep Total Protein 8.3 H Albumin 4.5 Globulin 3.8 Albumin/Globulin Ratio 1.2 Lipase 85 Procalcitonin < 0.03 SARS-CoV-2 (PCR) 10/03/22 10/03/22 20:35 20:48 WBC RBC Hgb Hct MCV MCH MCHC RDW Plt Count Neut % (Auto) Lymph % (Auto) [place] % (Auto) Eos % (Auto) Baso % (Auto) Neut # (Auto) Lymph # (Auto) [place] # (Auto) Eos # (Auto) Baso # (Auto) PT INR APTT D-Dimer Sodium Potassium Chloride Carbon Dioxide BUN Creatinine Estimated GFR BUN/Creatinine Ratio Glucose Calcium Total Bilirubin AST ALT Alkaline Phosphatase Total Creatine Kinase CK-MB (CK-2) CK-MB (CK-2) Rel Index Troponin I NT-Pro-B Natriuret Pep < 11 Total Protein Albumin Globulin Albumin/Globulin Ratio Lipase Procalcitonin SARS-CoV-2 (PCR) Negative [facility] Social History household members: spouse Smoking Status: Never smoker alcohol intake: current Discharge Plan Discharge Plan Patient Disposition: Home Provider Discharge Comment: You were admitted for palpitations. Your heart echo, EKG and telemetry showed no heart abnormalities. Please get a referral from your PCP for Zio patch heart monitor. You may continue xanax plus metoprolol at the same time to help with these palpitations and can take it twice daily if needed. Discharge orders & Medications Prescriptions: Continued alprazolam 0.25 mg tablet 0.25 mg PO BID metoprolol tartrate 25 mg tablet 25 mg PO DAILY Follow up/Referrals: Doctor Hillman MD [Primary Care Provider] - Visit Report/Discharge Packet Instructions: Tachycardia, DI for Atypical Chest Pain, Metoprolol, Alprazolam (By mouth) Stand Alone Forms: Patient Portal/API, Stroke Signs & Symptoms Discharge Data Primary Care Provider: Doctor Kady Attending Provider: Miles Lyon Admit Date/Time: 10/03/22 23:25 Discharges patient from system. Discharge Date/Time: 10/04/22 12:36 Quality VTE Deep Vein Thrombosis/Pulmonary Embolism Present on Admission: No
== END 2022-10-04 12:36 | disposition home or self-care (01) ==
LOC: ED 23:24 → AC 23:25
PROVIDERS: Admitting Provider Internal Medicine; Emergency Provider Emergency Medicine; Visit Provider Internal Medicine
DX: R07.9 Chest pain, unspecified (principal); R00.0 Tachycardia, unspecified; Z20.822 Contact with and (suspected) exposure to COVID-19
CPT/HCPCS: 36415; 71275; 80053; 81025; 82550; 83690; 83880; 84145; 84484; 85025; 85379; 85610; 85730; 87635; 93005; 93306; 96360; 96361; 96372; 99284; C9803; G0378; J1650; Q9967

== ENCOUNTER 2022-10-05 22:03 | Emergency (ER) | payer OTHER, SELFPAY ==
[2022-10-05 22:50] VITALS: BP 128/67; PULSE 96; RESP 20; TEMP 36.3; O2SAT 99; BMI 23.8
[2022-10-06 01:32] VITALS: BP 120/60; PULSE 72; RESP 18; O2SAT 98
[2022-10-06 01:54] VITALS: BP 122/66; PULSE 83
[2022-10-06 03:24] VITALS: PULSE 85
--- NOTE | 2022-10-06 04:12 | ED.CHESTPAIN ---
HPI - Chest Pain General Chief Complaint: Chest Pain Stated Complaint: SOB, woke up from sleeping not breathing Time Seen by Provider: 10/06/22 04:12 Source: patient Mode of arrival: Ambulatory Limitations: no limitations History of Present Illness HPI narrative: 27-year-old woman comes back with concerns for palpitations. She was admitted to the hospital with shortness of breath and chest pain on August 04. Thorough workup at that time did not find any pathologic explanations for her sinus tachycardia and she was discharged home with metoprolol tartrate 25 mg b.i.d. and Xanax as needed with outpatient cardiology consultation. She noted that last night she took metoprolol and felt jittery and had increased work of breathing. She felt like her breathing changed when she was about to fall asleep and was concerned to allow herself fall asleep. She felt like her heart was racing. She notes that her is currently active duty , they are being redeployed and in the process of moving she is not currently working. Does not drink a dramatic amount of caffeine or use other stimulants or alcohol. She has been eating quite a bit less because of loss of appetite after starting metoprolol. She notes that her usual week sleep hours are from 3:00 p.m. in the afternoon when she gets up stays up till around 3:00 a.m.. We did discuss the importance of circadian rhythms. She does have an Apple watch and can monitor sleep cycles encouraged her to do so. She is lost 3 lb over the last number of weeks, she is was concerned that a heart rate at 61 just as she was beginning to drift off to sleep was slow enough that she was going to in her sleep. We did review what a normal heart rate could be and how widely it can range and healthy 27-year-old woman. She reports no headaches, fevers, cough, chills, vomiting or diarrhea. Related Data Home Medications Medication Instructions Recorded Confirmed alprazolam 0.25 mg tablet 0.25 mg PO BID 10/04/22 10/04/22 metoprolol tartrate 25 mg tablet 25 mg PO DAILY 10/04/22 10/04/22 Allergies Allergy/AdvReac Type Severity Reaction Status Date / Time No Known Drug Allergies Allergy Verified 10/02/22 18:59 Review of Systems Review of Systems Narrative: Remainder of complete review of systems is otherwise unremarkable except for that included in the HPI. Patient History Social History household members: spouse Smoking Status: Never smoker alcohol intake: current Smoking Status: Never smoker alcohol intake frequency: holidays/special occasions only Substance Use Type: does not use Exam Initial Vital Signs Initial Vital Signs: Vital Signs Temperature 97.4 F L 10/05/22 22:50 Pulse Rate 96 H 10/05/22 22:50 Respiratory Rate 20 10/05/22 22:50 Blood Pressure 128/67 10/05/22 22:50 Pulse Oximetry 99 10/05/22 22:50 Oxygen Delivery Method Room Air 10/05/22 22:50 General: Healthy appearing, in no acute distress. Able to give a complete and coherent history. Well-nourished well-developed HEENT: Moist mucous membranes, normal sclera with reactive pupils, Neck: No JVD, supple Respiratory: Lungs are clear to auscultation, no wheezing no rales no rhonchi. Full and symmetrical air movement Cardiac: Regular rate and rhythm no murmurs no bruits Abdomen: Soft, nontender, good bowel tones, no flank pain Skin: Warm and dry, no rashes Neurologic: Grossly neurologically intact with no obvious asymmetries or abnormalities Extremities: No trauma, well perfused Psych: Cooperative, appropriate insight and affect Course Orders Ordered: ED Orders 10/05/22 23:03 EKG-12 Lead Stat Vital Signs Vital signs: Vital Signs - 8 hr 10/06/22 01:32 10/06/22 01:54 10/06/22 03:24 Pulse Rate 72 83 85 Respiratory Rate 18 Blood Pressure 120/60 122/66 Pulse Oximetry 98 Oxygen Delivery Method Room Air 10/06/22 04:33 10/06/22 05:07 10/06/22 05:40 Pulse Rate 88 91 H 98 H Respiratory Rate 16 Blood Pressure 117/69 120/75 124/81 Pulse Oximetry Oxygen Delivery Method MDM - Chest Pain MDM Narrative Medical decision making narrative: CC: Palpitations with concerns that she is going to stop breathing. This is an acute exacerbation of a previously evaluated problem with uncertain prognosis Complicating co-morbidities: Currently not working, tends to sleep most of the day be awake most of the night, increasing anxiety over upcoming move Data collected from: patient, Medical records reviewed: Hospital discharge from October 03 with admit for similar complaints Differential considered: Anxiety, palpitations, adverse medication effect, adrenergic surge, benign sinus tachycardia Exam documented above, pertinent findings include: Very reassuring exam. Independently reviewed EKG EKG shows sinus rhythm at a rate of 87 with mild sinus arrhythmia. Normal intervals and normal axis. No acute ischemic changes. Imaging studies independently reviewed: Chest CT October 03 is reviewed as is echocardiogram from October 04. Both are reassuring. Discussion: Reassurance was given. Reviewed CT angiogram as well as echocardiogram. Reviewed metoprolol and told her that I thought that the metoprolol likely was not causing any breathing abnormalities for her. Also reassured her that heart rate of 61 while she was falling asleep was absolutely within normal limits. She does have follow-up with Cardiology in the near future. Encouraged her to keep that appointment. Also encouraged her to continue metoprolol tartrate 25 mg b.i.d. to help with the symptomatic tachycardia. She is safe for discharge home Discharge Plan Departure Patient Disposition: Home Clinical Impression: Palpitations, Tachycardia Instructions: DI for Tachycardia Activity Restrictions/Additional Instructions: Thank you for coming in today. I am not finding anything concerning with her description of symptoms or heart rate. Your EKG is very reassuring. In looking at recent hospital stay in workup on October 03 and October 04 again, your heart appears structurally normal and your heart and chest appear physically appropriate as well. I would encourage you to keep all appointments as scheduled. Continue the 25 mg of metoprolol up to twice a day. 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 If you find that you are getting worse or develop any new symptoms, please feel free to return to the emergency department for further evaluation. Prescriptions: No Action alprazolam 0.25 mg tablet 0.25 mg PO BID metoprolol tartrate 25 mg tablet 25 mg PO DAILY Referrals: ProviderLuis [Primary Care Provider] - Stand Alone Forms: Patient Portal/API
[2022-10-06 04:33] VITALS: BP 117/69; PULSE 88; RESP 16
[2022-10-06 05:07] VITALS: BP 120/75; PULSE 91
[2022-10-06 05:40] VITALS: BP 124/81; PULSE 98
--- NOTE | 2022-10-06 05:43 | PC.NURSE ---
pain free,no sob.
== END 2022-10-06 05:43 | disposition home or self-care (01) ==
PROVIDERS: Emergency Provider Emergency Medicine
DX: R00.2 Palpitations (principal); R00.0 Tachycardia, unspecified
CPT/HCPCS: 93005; 99283

== ENCOUNTER 2022-11-19 23:46 | Emergency (ER) | payer OTHER, SELFPAY ==
[2022-11-19 23:57] VITALS: BP 122/71; PULSE 89; RESP 15; TEMP 36.7; O2SAT 98; BMI 23.9
--- NOTE | 2022-11-20 00:01 | DI.RAD.S_ITS ---
PROCEDURE: XR CHEST 1V INDICATIONS: chest pain TECHNIQUE: One view of the chest was acquired. COMPARISON: None. FINDINGS: Surgical changes and devices: None. Lungs and pleura: Lungs are clear. No pleural effusions or pneumothorax. Mediastinum: Mediastinal contours appear normal. Heart size is normal. Bones and chest wall: No suspicious bony lesions. Overlying soft tissues appear unremarkable. IMPRESSION: No acute cardiopulmonary findings Approved by: Jose Luis Davidson M.D. on 11/20/2022 at 0:32
[2022-11-20 00:29] LABS: Add Manual Diff / Slide Review NO; Basophils Absolute Auto 100 /uL (0-100); Basophils Percent Auto 0.6 % (0-2); Eosinophils Absolute Auto 200 /uL (0-450); Eosinophils Percent Auto 1.8 % (2-4); Hematocrit 38.9 % (36-46); Lymphocytes Absolute Auto 2500 /uL (1100-4500); Lymphocytes Percent Auto 29.9 % (25-40); Mean Corpuscular HGB Conc 33.4 % (30-36); Mean Corpuscular Hemoglobin 27.4 PG (26-34); Mean Corpuscular Volume 81.9 fL (80-100); Monocytes Absolute Auto 700 /uL (0-900); Monocytes Percent Auto 7.8 % (3-14); Neutrophils Absolute Auto 5100 /uL (1500-7000); Neutrophils Percent Auto 59.9 % (50-75); Platelet Count 232 X10^3/uL (150-400); Red Blood Cell Count 4.75 X10^6/uL (4.0-5.2); Red Cell Distribution Width 14.1 % (11.6-14.8); White Blood Cell Count 8.4 X10^3/uL (4.5-11.0)
[2022-11-20 00:45] LABS: Prothrombin Time 11.2 SECONDS (10.1-12.7)
[2022-11-20 00:48] LABS: PTT Partial Thromboplastin Tim 32 SECONDS (26-36)
[2022-11-20 00:49] LABS: Alanine Aminotransferase 32 IU/L (<35); Albumin 4.3 g/dL (3.5-5.0); Albumin Globulin Ratio 1.2 (1.0-2.8); Alkaline Phosphatase 71 U/L (38-126); Aspartate Aminotransferase 24 IU/L (14-36); BUN Creatinine Ratio 13.1 (6-22); Bilirubin Total 0.2 mg/dL (0.2-1.3); Blood Urea Nitrogen 8 mg/dL (7-17); Calcium 9.1 mg/dL (8.4-10.2); Carbon Dioxide 23 mmol/L (22-32); Chloride 105 mmol/L (98-107); Creatine Kinase 36 U/L (30-135); Estimated Glomerular Filt Rate > 60 mL/min (>60); Globulin 3.6 g/dL (1.7-4.1); Glucose 109 mg/dL (70-100); HEMOLYSIS < 15 (0-50); Lipase 103 U/L (23-300); Magnesium 1.9 mg/dL (1.6-2.3); Potassium 3.6 mmol/L (3.4-5.1); Sodium 138 mmol/L (137-145); Total Protein 7.9 g/dL (6.3-8.2)
[2022-11-20 01:01] LABS: Troponin I < 0.012 ng/mL (0.01-0.034)
[2022-11-20 03:19] VITALS: BP 121/59; PULSE 86; RESP 20; O2SAT 99
--- NOTE | 2022-11-20 04:00 | ED_ITS ---
HPI - Chest Pain General Chief Complaint: Chest Pain Stated Complaint: heart palpitation/chest pain x2 days Time Seen by Provider: 11/20/22 03:37 Source: patient Mode of arrival: Ambulatory Limitations: no limitations History of Present Illness HPI narrative: Patient is a 27-year-old female with history of tachycardia. She was admitted overnight in September with heart rate in the 120s to 130s. She is since been started on metoprolol 25 mg once daily which she says has been helping. She is not yet had a Holter monitor. Today she reports that she had few big episodes like 7 episodes where she feels a heart palpitation she gets warm and tingling all over. She is not pass out she is not dizzy or lightheaded. She wanted to come get checked out. She denies any other chest pain nausea vomiting fevers or other symptoms. She says that she is most a Holter monitor in 2 weeks. Related Data Home Medications Medication Instructions Recorded Confirmed alprazolam 0.25 mg tablet 0.25 mg PO BID 10/04/22 10/04/22 metoprolol tartrate 25 mg tablet 25 mg PO DAILY 10/04/22 10/04/22 Allergies Allergy/AdvReac Type Severity Reaction Status Date / Time No Known Drug Allergies Allergy Verified 10/02/22 18:59 Review of Systems Review of Systems ROS Unobtainable: All systems reviewed & are unremarkable except as noted in HPI and below Patient History Social History household members: spouse Smoking Status: Never smoker alcohol intake: current Smoking Status: Never smoker alcohol intake frequency: holidays/special occasions only Substance Use Type: does not use Exam Initial Vital Signs Initial Vital Signs: Vital Signs Temperature 98.0 F 11/19/22 23:57 Pulse Rate 89 11/19/22 23:57 Respiratory Rate 15 11/19/22 23:57 Blood Pressure 122/71 11/19/22 23:57 Pulse Oximetry 98 11/19/22 23:57 Oxygen Delivery Method Room Air 11/19/22 23:57 GENERAL: Alert well-appearing 27-year-old female and in no acute distress. HEENT: Head atraumatic,EOMI, pupils reactive, face symmetric, moist mucous m embranes CARDIOVASCULAR: Regular rate and rhythm without murmurs, rubs or gallops. RESPIRATORY: Breath sounds equal bilaterally, no wheezes rales or rhonchi. ABDOMEN: Soft, nontender. Normoactive bowel sounds all 4 quadrants. No guarding or rebound. EXTREMITIES: Normal range of motion, no clubbing or edema. Neurovascularly intact NEUROLOGICAL: Alert and oriented x4.Normal gait and speech. SKIN: Warm, dry, no laceration, no petechiae, no rashes or lesions. Course Orders Ordered: ED Orders 11/20/22 00:01 XR chest 1V Stat EKG-12 Lead Stat 11/20/22 00:13 Complete Blood Count AUTO DIFF Stat Comprehensive Metabolic Panel Stat Lipase Stat Magnesium Stat PTT Partial Thromboplastin Fabian Stat Prothrombin Time INR Stat Troponin & CK Cardiac Panel Stat Discontinued Medications Aspirin (Aspirin 81 Mg Chew Tab) 324 mg PO NOW ONE Stop: 11/20/22 00:02 Vital Signs Vital signs: Vital Signs - 8 hr 11/19/22 23:57 11/20/22 03:19 11/20/22 04:29 Temperature 98.0 F Pulse Rate 89 86 84 Respiratory Rate 15 20 16 Blood Pressure 122/71 121/59 L 114/58 L Pulse Oximetry 98 99 97 Oxygen Delivery Method Room Air Room Air Room Air 11/20/22 04:31 Temperature Pulse Rate 87 Respiratory Rate 20 Blood Pressure 114/58 L Pulse Oximetry 97 Oxygen Delivery Method Room Air MDM - Chest Pain Lab Data 11/20/22 00:13 11/20/22 00:13 Labs: Lab Results 11/20/22 11/20/22 11/20/22 Range/Units 00:13 00:13 00:13 WBC 8.4 (4.5-11.0) X10^3/uL RBC 4.75 (4.0-5.2) X10^6/uL Hgb 13.0 (12.0-16.0) g/dL Hct 38.9 (36-46) % MCV 81.9 (80-100) fL MCH 27.4 (26-34) PG MCHC 33.4 (30-36) % RDW 14.1 (11.6-14.8) % Plt Count 232 (150-400) X10^3/uL Neut % (Auto) 59.9 (50-75) % Lymph % (Auto) 29.9 (25-40) % Tyrrell % (Auto) 7.8 (3-14) % Eos % (Auto) 1.8 L (2-4) % Baso % (Auto) 0.6 (0-2) % Neut # (Auto) 5100 (9550-8112) /uL Lymph # (Auto) 2500 (4311-0084) /uL Tyrrell # (Auto) 700 (0-900) /uL Eos # (Auto) 200 (0-450) /uL Baso # (Auto) 100 (0-100) /uL PT 11.2 (10.1-12.7) SECONDS INR 1.0 (0.9-1.3) APTT 32 (26-36) SECONDS Sodium 138 (137-145) mmol/L Potassium 3.6 (3.4-5.1) mmol/L Chloride 105 (98-107) mmol/L Carbon Dioxide 23 (22-32) mmol/L BUN 8 (7-17) mg/dL Creatinine 0.61 (0.52-1.04) mg/dL Estimated GFR > 60 (>60) mL/min BUN/Creatinine Ratio 13.1 (6-22) Glucose 109 H (70-100) mg/dL Calcium 9.1 (8.4-10.2) mg/dL Magnesium 1.9 (1.6-2.3) mg/dL Total Bilirubin 0.2 (0.2-1.3) mg/dL AST 24 (14-36) IU/L ALT 32 (<35) IU/L Alkaline Phosphatase 71 (38-126) U/L Total Creatine Kinase 36 (30-135) U/L CK-MB (CK-2) TNP CK-MB (CK-2) Rel Index TNP Troponin I < 0.012 (0.01-0.034) ng/mL Total Protein 7.9 (6.3-8.2) g/dL Albumin 4.3 (3.5-5.0) g/dL Globulin 3.6 (1.7-4.1) g/dL Albumin/Globulin Ratio 1.2 (1.0-2.8) Lipase 103 (23-300) U/L Imaging Data Chest x-ray: Radiologist's Impression: PROCEDURE:? XR CHEST 1V ? INDICATIONS:? chest pain ? TECHNIQUE:? One view of the chest was acquired.? ? COMPARISON:? None. ? FINDINGS:? ? Surgical changes and devices:? None.? ? Lungs and pleura:? Lungs are clear.? No pleural effusions or pneumothorax.? ? Mediastinum:? Mediastinal contours appear normal.? Heart size is normal.? ? Bones and chest wall:? No suspicious bony lesions.? Overlying soft tissues appear unremarkable.? ? IMPRESSION:? No acute cardiopulmonary findings ? ? ? Approved by: Jose Luis Davidson M.D. on 11/20/2022 at 0:32? ECG Data Interpretation: Sinus rhythm rate 87 TX interval 156 QRS 80 QTC 20 changes no T-wave inversions similar to previous EKGs MDM Narrative Medical decision making narrative: Patient 27-year-old female who presents today her palpitations. She is been having palpitations since at least September. She was admitted she is had a CT angio and an echocardiogram in September. She is taking metoprolol which she says helps. Today blood work is overall reassuring without anemia electrolyte abnormality or MARITZA. Troponin is negative EKG and chest x-ray also negative. At this time I recommend that she wear a watch to monitor her heart rate until she get the Holter monitor. She get tachycardic even when I am talking to her into the 110s then it quickly goes down under 100. Discharge Plan Departure Patient Disposition: Home Clinical Impression: Palpitations Instructions: DI for Palpitations Activity Restrictions/Additional Instructions: *You have been diagnosed with palpitations *What to do: At this time you may wear a watch to monitor your heart rate. You still need Holter monitor. Keep taking her medication as directed follow-up with your providers. *Continue to take medications as directed *Follow up with your primary care provider in 2-3 days or call [phone] *Return to ER if you should have increasing palpitations dizziness lighthead edness heart rate greater than 140 for 1 hour [or] any new, worsening or concerning symptoms Prescriptions: No Action alprazolam 0.25 mg tablet 0.25 mg PO BID metoprolol tartrate 25 mg tablet 25 mg PO DAILY Referrals: ProviderLuis [Primary Care Provider] - Stand Alone Forms: Patient Portal/API
[2022-11-20 04:29] VITALS: BP 114/58; PULSE 84; RESP 16; O2SAT 97
[2022-11-20 04:31] VITALS: BP 114/58; PULSE 87; RESP 20; O2SAT 97
--- NOTE | 2022-11-22 00:01 | PC.NURSE ---
Accessed chart at the request of [facility] for records.
== END 2022-11-20 04:32 | disposition home or self-care (01) ==
PROVIDERS: Emergency Provider Emergency Medicine
DX: R00.2 Palpitations (principal); R07.9 Chest pain, unspecified
CPT/HCPCS: 36415; 71045; 80053; 82550; 83690; 83735; 84484; 85025; 85610; 85730; 93005; 93010; 99283; 99284

== ENCOUNTER 2022-12-01 21:56 | Emergency (ER) | payer OTHER, SELFPAY ==
[2022-12-01 22:04] VITALS: BP 128/96
[2022-12-01 22:05] VITALS: PULSE 105; O2SAT 98
[2022-12-01 22:07] VITALS: BP 128/96; PULSE 98; RESP 18; TEMP 36.9; O2SAT 99; BMI 23.8
[2022-12-01 22:30] VITALS: PULSE 105; RESP 24; O2SAT 98
--- NOTE | 2022-12-01 22:31 | DI.RAD.S_ITS ---
PROCEDURE: XR CHEST 1V INDICATIONS: chest pain TECHNIQUE: One view of the chest was acquired. COMPARISON: [facility], CR, XR CHEST 1V, 11/20/2022, 0:05. FINDINGS: Surgical changes and devices: An electronic device projects over the left hemithorax. Lungs and pleura: Lungs are clear. No pleural effusions or pneumothorax. Mediastinum: Mediastinal contours appear normal. Heart size is normal. Bones and chest wall: No suspicious bony lesions. Overlying soft tissues appear unremarkable. IMPRESSION: 1. No acute cardiopulmonary disease. Dictated by: Chuckie Bonds M.D. on 12/02/2022 at 0:11 Approved by: Chuckie Bonds M.D. on 12/02/2022 at 0:12
[2022-12-01 22:42] LABS: Add Manual Diff / Slide Review NO; Basophils Absolute Auto 100 /uL (0-100); Basophils Percent Auto 0.7 % (0-2); Eosinophils Absolute Auto 100 /uL (0-450); Eosinophils Percent Auto 1.6 % (2-4); Hematocrit 41.6 % (36-46); Hemoglobin 13.9 g/dL (12.0-16.0); Lymphocytes Absolute Auto 2500 /uL (1100-4500); Lymphocytes Percent Auto 30.2 % (25-40); Mean Corpuscular HGB Conc 33.3 % (30-36); Mean Corpuscular Hemoglobin 27.5 PG (26-34); Mean Corpuscular Volume 82.4 fL (80-100); Monocytes Absolute Auto 600 /uL (0-900); Monocytes Percent Auto 7.6 % (3-14); Neutrophils Absolute Auto 5000 /uL (1500-7000); Neutrophils Percent Auto 59.9 % (50-75); Platelet Count 251 X10^3/uL (150-400); Red Blood Cell Count 5.05 X10^6/uL (4.0-5.2); Red Cell Distribution Width 14.4 % (11.6-14.8); White Blood Cell Count 8.3 X10^3/uL (4.5-11.0)
[2022-12-01 22:49] LABS: Prothrombin Time 11.3 SECONDS (10.1-12.7)
[2022-12-01 22:51] LABS: PTT Partial Thromboplastin Tim 33 SECONDS (26-36)
[2022-12-01 22:54] LABS: Alanine Aminotransferase 29 IU/L (<35); Albumin 4.5 g/dL (3.5-5.0); Albumin Globulin Ratio 1.1 (1.0-2.8); Alkaline Phosphatase 88 U/L (38-126); Aspartate Aminotransferase 25 IU/L (14-36); Bilirubin Total 0.3 mg/dL (0.2-1.3); Blood Urea Nitrogen 14 mg/dL (7-17); Calcium 9.2 mg/dL (8.4-10.2); Carbon Dioxide 24 mmol/L (22-32); Chloride 103 mmol/L (98-107); Creatine Kinase 47 U/L (30-135); Estimated Glomerular Filt Rate > 60 mL/min (>60); Glucose 97 mg/dL (70-100); HEMOLYSIS < 15 (0-50); Lipase 98 U/L (23-300); Potassium 3.9 mmol/L (3.4-5.1); Sodium 138 mmol/L (137-145); Total Protein 8.5 g/dL (6.3-8.2)
[2022-12-01 23:00] VITALS: PULSE 88; RESP 20; O2SAT 98
[2022-12-01 23:06] LABS: Troponin I < 0.012 ng/mL (0.01-0.034)
[2022-12-01 23:30] VITALS: PULSE 83; RESP 22; O2SAT 98
--- NOTE | 2022-12-01 23:59 | ED_ITS ---
HPI - Chest Pain General Chief Complaint: Chest Pain Stated Complaint: chest pain, hx of cardiac issues Time Seen by Provider: 12/01/22 23:58 Source: patient Mode of arrival: Ambulatory Limitations: no limitations History of Present Illness HPI narrative: This is a 27-year-old female who presents with complaint of right-sided chest pain and palpitations. Patient has had several visits for tachycardia and chest pain, she was admitted overnight in September of 2022 with a heart rate in the 120s to 130s. Patient is currently on metoprolol daily and has Xanax PRN. Patient states she is had right-sided chest pain radiates little bit towards her throat. Started this evening and brown 5:00 p.m. She states she has had this on and off. She is had palpitations. She states palpitations have been less frequent since she is been on the metoprolol. She is currently wearing a ZIO patch. Patient states no radiation down arm, back or abdomen. No fevers or chills, no cold cough or congestion. She is felt a little lightheaded but no passing out. Patient states no diaphoresis. She is had some mild nausea. No vomiting. No new swelling in extremities. No issues with bowel movements or urination. Patient states besides metoprolol she is not on any other daily medications. No prior surgeries. No known drug allergies. No family history of cardiac, embolic or other events. No tobacco, alcohol or illicit. She did see cardiology was evaluated they had some suspicion of SVT. Patient did have an echo on 10/04/2022 with an EF of 55% with no acute changes, she was admitted overnight and has had a CT angio to rule out pulmonary emboli. Related Data Home Medications Medication Instructions Recorded Confirmed alprazolam 0.25 mg tablet 0.25 mg PO BID 10/04/22 10/04/22 metoprolol tartrate 25 mg tablet 25 mg PO DAILY 10/04/22 10/04/22 Allergies Allergy/AdvReac Type Severity Reaction Status Date / Time No Known Drug Allergies Allergy Verified 12/01/22 22:10 Review of Systems Review of Systems ROS Unobtainable: All systems reviewed & are unremarkable except as noted in HPI and below Patient History Social History household members: spouse Smoking Status: Never smoker alcohol intake: current Smoking Status: Never smoker alcohol intake frequency: holidays/special occasions only Substance Use Type: does not use Exam Narrative Exam Narrative: GENERAL: Alert and oriented x three, mild distress. HEENT: Head normocephalic, atraumatic, EOMI, pupils reactive, face symmetric, moist mucous membranes NECK: Supple, full range of motion CARDIOVASCULAR: Regular rate and rhythm without murmurs, rubs or gallops. No JVD. No swelling bilateral lower extremities. RESPIRATORY: Breath sounds equal bilaterally, no wheezes rales or rhonchi. No tachypnea, no accessory muscle use. ABDOMEN: Soft, nontender. Normoactive bowel sounds all 4 quadrants. No guarding or rebound, rigidity, no mass : No CVA tenderness EXTREMITIES: Normal range of motion, no clubbing or edema. Neurovascularly intact NEUROLOGICAL: Cranial nerves II through XII grossly intact. Moving all extremities SKIN: Warm, dry, no petechiae, no rashes or lesions. Initial Vital Signs Initial Vital Signs: Vital Signs Blood Pressure 128/96 H 12/01/22 22:04 Scores HEART Score Heart Score history: Slightly Suspicious Heart Score EKG: Normal Heart Score Age: < 45 years old Heart Score risk factors: No known risk factors Heart Score troponin: < or = to normal limit Heart Score Total: 0 Course Orders Ordered: ED Orders 12/01/22 22:26 Complete Blood Count AUTO DIFF Stat Comprehensive Metabolic Panel Stat Lipase Stat Magnesium Stat PTT Partial Thromboplastin Fabian Stat Prothrombin Time INR Stat Troponin & CK Cardiac Panel Stat 12/01/22 22:31 XR chest 1V Stat Discontinued Medications Aspirin (Aspirin 81 Mg Chew Tab) 324 mg PO NOW ONE Stop: 12/01/22 22:32 Last Admin: 12/02/22 00:31 Dose: Not Given Documented By: AMU Ibuprofen (Ibuprofen 400 Mg Tablet) 800 mg PO NOW ONE Stop: 12/02/22 00:30 Last Admin: 12/02/22 00:33 Dose: 800 mg Documented By: NAHEEDU Vital Signs Vital signs: Vital Signs - 8 hr 12/01/22 22:07 12/01/22 22:04 12/01/22 22:05 Temperature 98.5 F Pulse Rate 98 H 105 H Respiratory Rate 18 Blood Pressure 128/96 H 128/96 H Pulse Oximetry 99 98 Oxygen Delivery Method Room Air 12/01/22 22:30 12/01/22 23:00 12/01/22 23:30 Temperature Pulse Rate 105 H 88 83 Respiratory Rate 24 20 22 Blood Pressure Pulse Oximetry 98 98 98 Oxygen Delivery Method 12/02/22 00:00 12/02/22 00:30 12/02/22 00:35 Temperature Pulse Rate 81 85 89 Respiratory Rate 20 22 22 Blood Pressure Pulse Oximetry 98 98 99 Oxygen Delivery Method 12/02/22 00:35 Temperature Pulse Rate Respiratory Rate Blood Pressure 112/67 Pulse Oximetry Oxygen Delivery Method MDM - Chest Pain Lab Data 12/01/22 22:26 12/01/22 22:26 Labs: Lab Results 12/01/22 12/01/22 12/01/22 Range/Units 22:26 22:26 22:26 WBC 8.3 (4.5-11.0) X10^3/uL RBC 5.05 (4.0-5.2) X10^6/uL Hgb 13.9 (12.0-16.0) g/dL Hct 41.6 (36-46) % MCV 82.4 (80-100) fL MCH 27.5 (26-34) PG MCHC 33.3 (30-36) % RDW 14.4 (11.6-14.8) % Plt Count 251 (150-400) X10^3/uL Neut % (Auto) 59.9 (50-75) % Lymph % (Auto) 30.2 (25-40) % Davie % (Auto) 7.6 (3-14) % Eos % (Auto) 1.6 L (2-4) % Baso % (Auto) 0.7 (0-2) % Neut # (Auto) 5000 (9968-2658) /uL Lymph # (Auto) 2500 (7561-7244) /uL Davie # (Auto) 600 (0-900) /uL Eos # (Auto) 100 (0-450) /uL Baso # (Auto) 100 (0-100) /uL PT 11.3 (10.1-12.7) SECONDS INR 1.0 (0.9-1.3) APTT 33 (26-36) SECONDS Sodium 138 (137-145) mmol/L Potassium 3.9 (3.4-5.1) mmol/L Chloride 103 (98-107) mmol/L Carbon Dioxide 24 (22-32) mmol/L BUN 14 (7-17) mg/dL Creatinine 0.70 (0.52-1.04) mg/dL Estimated GFR > 60 (>60) mL/min BUN/Creatinine Ratio 20.0 (6-22) Glucose 97 (70-100) mg/dL Calcium 9.2 (8.4-10.2) mg/dL Magnesium 2.0 (1.6-2.3) mg/dL Total Bilirubin 0.3 (0.2-1.3) mg/dL AST 25 (14-36) IU/L ALT 29 (<35) IU/L Alkaline Phosphatase 88 (38-126) U/L Total Creatine Kinase 47 (30-135) U/L Troponin I < 0.012 (0.01-0.034) ng/mL Total Protein 8.5 H (6.3-8.2) g/dL Albumin 4.5 (3.5-5.0) g/dL Globulin 4.0 (1.7-4.1) g/dL Albumin/Globulin Ratio 1.1 (1.0-2.8) Lipase 98 (23-300) U/L Imaging Data Chest x-ray: Radiologist's Impression: Dimple Braga??27??F??1995 ? Allergy/Adv: No Known Drug Allergies (More??) Close Chest X-Ray (Signed) Chuckie Bonds - 12/01/22 Chest X-Ray (Signed) Jose Luis Davidson - 11/20/22 Echocardiogram Ultrasound (Signed) Amarilis Liz - 10/04/22 Telemetry Strips 10/03/22 Telemetry Strips 10/03/22 Chest CTA (Signed) Chuckie Bonds - 10/03/22 Launch?[address] [address] XRay Report Signed Patient: Dimple Braga MR#: [id number] : 1995 Acct:[id number] Age/Sex: 27 / F Date of Service: 12/01/22 Loc: ED Accession Number: [id number] ?? Procedure: XR chest 1V Ordering Provider: Consuelo Nicole D.O. PROCEDURE:? XR CHEST 1V ? INDICATIONS:? chest pain ? TECHNIQUE:? One view of the chest was acquired.? ? COMPARISON:? [facility], CR, XR CHEST 1V, 11/20/2022, 0:05. ? FINDINGS:? ? Surgical changes and devices:? An electronic device projects over the left hemithorax. ? Lungs and pleura:? Lungs are clear.? No pleural effusions or pneumothorax.? ? Mediastinum:? Mediastinal contours appear normal.? Heart size is normal.? ? Bones and chest wall:? No suspicious bony lesions.? Overlying soft tissues appear unremarkable.? ? IMPRESSION:? ? 1.? No acute cardiopulmonary disease. ? ? ? Dictated by: Chuckie Bonds M.D. on 12/02/2022 at 0:11 ? ? Approved by: Chuckie Bonds M.D. on 12/02/2022 at 0:12?? ECG Data Attestation: I personally reviewed and interpreted this ECG as follows: Prior ECG tracings: available for review Interpretation: Sinus rhythm, sinus arrhythmia, rate of 93, DC 140 QRS 86 and QTC of 440. No acute ST elevation or depression appreciated patient has prior from 11/20/2022 which appears similar. MDM Narrative Medical decision making narrative: This is a 27-year-old female who presents with a complaint of right-sided chest pain, palpitations he is had several visits for similar. Patient has had admission with echo, monitoring, CT angio and workup so far that had not showed any acute changes. Today's labs show normal CBC, coags, CMP, troponin and LFTs. EKG shows no acute changes, no tachycardia in the department chest x-ray is negative. Patient has noticed some improvement since starting metoprolol. She is currently wearing a ZIO patch she has seen Cardiology. She is never had a stress test. Patient 5-1/2 hours of symptoms before presenting having her troponin drawn and is negative. Do not feel that she requires additional workup or admission at this time did not discuss return precautions. Was given a radha ntout of her echo was she is moving to [facility] with the [employer] so that she can share with her medical team there. She notes she turns her ZIO patch in on the . Discussed return precautions. All questions answered. Discharge Plan Departure Patient Disposition: Home Clinical Impression: Palpitations Instructions: DI for Atypical Chest Pain Activity Restrictions/Additional Instructions: Follow-up for recheck, I would recommend calling as soon as you are able in [place] to help set up follow up. You may be able to follow with cardiology through [facility] in [place] which may be more timely. A copy of your ECHO results are included in your discharge. Please continue your metoprolol daily. Please return for new or worsening symptoms if you are having changing or atypical symptoms, new increasing chest pain, shortness of breath, passing out, new swelling in her extremities or persistent palpitations or fast or irregular heartbeat. Prescriptions: No Action alprazolam 0.25 mg tablet 0.25 mg PO BID metoprolol tartrate 25 mg tablet 25 mg PO DAILY Referrals: ProviderLuis [Primary Care Provider] - Stand Alone Forms: Patient Portal/API
[2022-12-02] VITALS: PULSE 81; RESP 20; O2SAT 98
[2022-12-02 00:30] VITALS: PULSE 85; RESP 22; O2SAT 98
[2022-12-02] MEDS: IBUPROFEN 400 MG TABLET 800 MG PO (00:33)
[2022-12-02 00:35] VITALS: BP 112/67; PULSE 89; RESP 22; O2SAT 99
== END 2022-12-02 00:50 | disposition home or self-care (01) ==
PROVIDERS: Emergency Provider Emergency Medicine
DX: R00.2 Palpitations (principal); R07.9 Chest pain, unspecified
CPT/HCPCS: 36415; 71045; 80053; 82550; 83690; 83735; 84484; 85025; 85610; 85730; 93005; 93010; 99284

== ENCOUNTER 2022-12-04 23:23 | Emergency (ER) | payer OTHER, SELFPAY ==
[2022-12-04 23:28] VITALS: BP 136/65; PULSE 80; RESP 15; TEMP 36.9; O2SAT 99; BMI 23.8
--- NOTE | 2022-12-05 00:10 | ED.CHESTPAIN ---
HPI - Chest Pain General Chief Complaint: Chest Pain Stated Complaint: chest pain Time Seen by Provider: 12/04/22 23:37 Source: patient Mode of arrival: Ambulatory Limitations: no limitations History of Present Illness HPI narrative: Patient is a 27-year-old female. Does have a history of palpitations and SVT. Is on metoprolol. Currently has a ZIO patch in place. Was seen here in the emergency department a couple days ago for right-sided chest discomfort. Had a fairly extensive workup and was discharged home. Low suspicion for cardiac etiology. He states that that discomfort went away and now it is back again. States it is a sharp pain. Right side of her chest. Not worse with palpation or movement or taking a deep breath. She is not feeling any palpitations. Is a similar pain to what she had a couple days ago. Related Data Home Medications Medication Instructions Recorded Confirmed alprazolam 0.25 mg tablet 0.25 mg PO BID 10/04/22 10/04/22 metoprolol tartrate 25 mg tablet 25 mg PO DAILY 10/04/22 10/04/22 Allergies Allergy/AdvReac Type Severity Reaction Status Date / Time No Known Drug Allergies Allergy Verified 12/01/22 22:10 Review of Systems Constitutional Constitutional: Reports system reviewed and no additional complaints, except as documented Cardiovascular Cardiovascular: Reports system reviewed and no additional complaints, except as documented Respiratory Respiratory: Reports system reviewed and no additional complaints, except as documented Integumentary/Breasts Skin/Breast: Reports system reviewed and no additional complaints, except as documented Neurologic Neurologic: Reports system reviewed and no additional complaints, except as documented Patient History Social History household members: spouse Smoking Status: Never smoker alcohol intake: current Smoking Status: Never smoker alcohol intake frequency: holidays/special occasions only Substance Use Type: does not use Exam Initial Vital Signs Initial Vital Signs: Vital Signs Temperature 98.5 F 12/04/22 23:28 Pulse Rate 80 12/04/22 23:28 Respiratory Rate 15 12/04/22 23:28 Blood Pressure 136/65 12/04/22 23:28 Pulse Oximetry 99 12/04/22 23:28 Oxygen Delivery Method Room Air 12/04/22 23:28 Const General: cooperative, comfortable, well groomed and No ill appearing HENMT Head: normal to inspection Chest Chest: No crepitus and No tenderness Resp Effort & Inspection: normal respiratory effort Auscultation: clear to auscultation bilaterally Cardio Rate: regular rate Rhythm: regular rhythm Neuro General: patient alert, patient awake and moves all extremities Course Orders Ordered: ED Orders 12/04/22 23:37 EKG-12 Lead Stat Vital Signs Vital signs: Vital Signs - 8 hr 12/04/22 23:28 Temperature 98.5 F Pulse Rate 80 Respiratory Rate 15 Blood Pressure 136/65 Pulse Oximetry 99 Oxygen Delivery Method Room Air MDM - Chest Pain ECG Data Attestation: I personally reviewed and interpreted this ECG as follows: Interpretation: Sinus rhythm Ventricular rate 80 Normal axis Normal QRS Normal QTC No ST T changes MDM Narrative Medical decision making narrative: I have a very low suspicion that the patient has a right-sided chest discomfort today is cardiac in origin. She had a very extensive workup of a couple days ago that was unremarkable. She is in sinus rhythm. Her EKG is unremarkable. Unsure of the exact etiology and I did discuss this with the patient however feel that no further workup is required here in the emergency department. Will discharge patient home with strict return precautions. She expressed understanding and agreement. Discharge Plan Departure Patient Disposition: Home Clinical Impression: Chest pain Instructions: DI for Chest Pain Activity Restrictions/Additional Instructions: I recommend that you continue to take all of your medications as directed. Keep all of your scheduled medical appointments. Return emergency department for new or worsening symptoms. Prescriptions: No Action alprazolam 0.25 mg tablet 0.25 mg PO BID metoprolol tartrate 25 mg tablet 25 mg PO DAILY Referrals: ProviderLuis [Primary Care Provider] - Stand Alone Forms: Patient Portal/API
== END 2022-12-05 00:29 | disposition home or self-care (01) ==
PROVIDERS: Emergency Provider Emergency Medicine
DX: R07.9 Chest pain, unspecified (principal)
CPT/HCPCS: 93005; 99281; 99283